=== PATIENT | male | born 1995 | race Caucasian/White ===

== ENCOUNTER 2016-12-23 18:21 | Emergency (ER) | payer BC ==
[~2016-12-23] VITALS: Ht 170.2 cm; Wt 70.5 kg
[2016-12-23 18:36] VITALS: TEMP 37; Ht 170.2 cm; Wt 70.5 kg
[2016-12-23] MEDS ORDERED: SODIUM CHLORIDE 0.9% 1000ML 1,000 ML IV STA (19:43)
--- NOTE | 2016-12-23 19:45 | EMERGENCY ROOM VISIT NOTE ---
History Report prepared by Jerman: Britney Aldana Under the Supervision of: Dr. Sherman Campuzano M.D. First contact with patient: 19:27 Chief Complaint: ABDOMINAL PAIN Stated Complaint: ABDOMINAL PAIN- [facility] REFERRED Nursing Triage Summary: Pt c/o upper abd pain since yesterday morning. denies n/v/d. reports constipation, last BM was yesterday after tea and Pepto Bismol. "my dad had appendicitis when he was my age". Pt referred from [facility] History of Present Illness The patient is a 21 year old male who presents to the Emergency Room with complaints of waxing and waning RLQ pain beginning yesterday morning. The patient states that he has been having RLQ abdominal pain that comes and goes every 20 minutes. He reports that his pain gets up to a 9/10 in severity every 20 minutes. 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 He complains of constipation and decreased appetite. The patient denies any nausea, vomiting, and fever. He notes that he has had no previous surgeries on his abdomen. He reports that his dad had appendicitis when he was around the same age. Source of History: patient Onset: yesterday morning Position: abdomen (RLQ) Symptom Intensity: 9/10 Timing: waxes/wanes Associated Symptoms: No fevers, No nausea, No vomiting Note: Pt complains of constipation and decreased appetite. Review of Systems See HPI for pertinent positives & negatives. A total of 10 systems reviewed and were otherwise negative. Past Medical & Surgical Medical Problems: (1) No Known Active Medical Problems Family History No pertinent family history stated. Social History Smoking Status: Never Smoker Marital Status: in relationship Housing Status: lives with significant other Occupation Status: student Current/Historical Medications No Active Prescriptions or Reported Meds Allergies Coded Allergies: No Known Allergies (Unverified , 12/23/16) Physical Exam Vital Signs Date Time Temp Pulse Resp B/P (MAP) Pulse Ox O2 Delivery O2 Flow Rate FiO2 12/23/16 23:00 56 18 128/61 98 12/23/16 22:07 58 18 105/58 95 Room Air 12/23/16 20:51 58 18 122/57 98 Room Air 12/23/16 19:35 60 18 117/51 96 Room Air 12/23/16 18:36 37.0 64 18 116/57 100 Room Air Physical Exam GENERAL: Patient is in moderate distress, mildly uncomfortable appearing HEENT: No acute trauma, normocephalic atraumatic, mucous membranes moist, no nasal congestion, no scleral icterus. NECK: No stridor, no adenopathy, no meningismus, trachea is midline. LUNGS: No dyspnea. Clear to auscultation and equal bilaterally. No wheeze, no rhonchi. HEART: Regular rate and rhythm. No murmurs, rubs, gallops appreciated. ABDOMEN: Soft, moderate RLQ tenderness to palpation, bowel sounds positive, no masses appreciated, no peritonitis. BACK: No midline tenderness, no CVA tenderness EXTREMITIES: Normal motion all extremities, no cyanosis, no edema. NEUROLOGIC: Alert and oriented, no acute motor or sensory deficits, no focal weakness, cranial nerves grossly intact. SKIN: No rash, no jaundice, no diaphoresis. Medical Decision & Procedures ER Provider Diagnostic Interpretation: Radiology results and stated below per my review and radiologist interpretation: APPENDIX ULTRASOUND FINDINGS: Transabdominal scanning of the right lower quadrant was performed. The appendix was not identified small amount of fluid was noted within the right lower quadrant. IMPRESSION: 1. Nonvisualization of the appendix. A CT is recommended if persistent clinical suspicion for acute appendicitis. 2. Trace free fluid within the right lower quadrant. Electronically signed by: Rcikie Caldera M.D. 12/23/2016 9:22 PM Dictated Date/Time: 12/23/2016 9:[address] OF THE ABDOMEN AND PELVIS WITH CONTRAST FINDINGS: Lung bases are clear. The liver, spleen, adrenal glands, kidneys and pancreas are normal. There is no biliary or pancreatic ductal dilatation. There is no hydronephrosis. No abdominal or pelvic lymphadenopathy is present. There is no evidence for a bowel obstruction. The appendix is at the upper limits of normal for caliber. There is no periappendiceal infiltration. There is oral contrast and gas within the appendix. Note is made of long segment moderate wall thickening of the distal ileum. There is no free air or abscess. A small amount of fluid is noted within the pelvis. Skeletal structures are unremarkable. IMPRESSION: 1. Long segment moderate wall thickening of the distal ileum consistent with ileitis. This could be due to an infectious etiology or an inflammatory etiology such as Crohn's disease. No free air, abscess or bowel obstruction. Small amount of fluid within the pelvis. 2. Normal appendix. Electronically signed by: Rickie Caldera M.D. 12/23/2016 10:25 PM Dictated Date/Time: 12/23/2016 10:18 PM Laboratory Results 12/23/16 19:55 Red Blood Count 4.87, Mean Corpuscular Volume 89.1, Mean Corpuscular Hemoglobin 31.0, Mean Corpuscular Hemoglobin Concent 34.8, Mean Platelet Volume 9.3, Neutrophils (%) (Auto) 57.5, Lymphocytes (%) (Auto) 29.6, Monocytes (%) (Auto) 9.3, Eosinophils (%) (Auto) 3.2, Basophils (%) (Auto) 0.2, Neutrophils # (Auto) 6.05, Lymphocytes # (Auto) 3.12, Monocytes # (Auto) 0.98, Eosinophils # (Auto) 0.34, Basophils # (Auto) 0.02 12/23/16 19:55 Test 12/23/16 19:55 12/23/16 21:25 White Blood Count 10.53 K/uL (4.8-10.8) Red Blood Count 4.87 M/uL (4.7-6.1) Hemoglobin 15.1 g/dL (14.0-18.0) Hematocrit 43.4 % (42-52) Mean Corpuscular Volume 89.1 fL (80-100) Mean Corpuscular Hemoglobin 31.0 pg (25-34) Mean Corpuscular Hemoglobin Concent 34.8 g/dl (32-36) Platelet Count 240 K/uL (130-400) Mean Platelet Volume 9.3 fL (7.4-10.4) Neutrophils (%) (Auto) 57.5 % Lymphocytes (%) (Auto) 29.6 % Monocytes (%) (Auto) 9.3 % Eosinophils (%) (Auto) 3.2 % Basophils (%) (Auto) 0.2 % Neutrophils # (Auto) 6.05 K/uL (1.4-6.5) Lymphocytes # (Auto) 3.12 K/uL (1.2-3.4) Monocytes # (Auto) 0.98 K/uL (0.11-0.59) Eosinophils # (Auto) 0.34 K/uL (0-0.5) Basophils # (Auto) 0.02 K/uL (0-0.2) RDW Standard Deviation 41.8 fL (36.4-46.3) RDW Coefficient of Variation 12.8 % (11.5-14.5) Immature Granulocyte % (Auto) 0.2 % Immature Granulocyte # (Auto) 0.02 K/uL (0.00-0.02) Anion Gap 5.0 mmol/L (3-11) Est Creatinine Clear Calc Drug Dose 121.7 ml/min Estimated GFR () 140.7 Estimated GFR (Non- 121.4 BUN/Creatinine Ratio 13.4 (10-20) Calcium Level 9.3 mg/dl (8.5-10.1) Total Bilirubin 0.4 mg/dl (0.2-1) Direct Bilirubin 0.1 mg/dl (0-0.2) Aspartate Amino Transf (AST/SGOT) 20 U/L (15-37) Alanine Aminotransferase (ALT/SGPT) 24 U/L (12-78) Alkaline Phosphatase 87 U/L (45-117) Total Protein 7.7 gm/dl (6.4-8.2) Albumin 4.1 gm/dl (3.4-5.0) Lipase 167 U/L (73-393) Urine Color YELLOW Urine Appearance CLEAR (CLEAR) Urine pH 6.0 (4.5-7.5) Urine Specific [place] 1.008 (1.000-1.030) Urine Protein NEG (NEG) Urine Glucose (UA) NEG (NEG) Urine Ketones NEG (NEG) Urine Occult Blood NEG (NEG) Urine Nitrite NEG (NEG) Urine Bilirubin NEG (NEG) Urine Urobilinogen NEG (NEG) Urine Leukocyte Esterase NEG (NEG) Urine WBC (Auto) 0 /hpf (0-5) Urine RBC (Auto) 0-4 /hpf (0-4) Urine Hyaline Casts (Auto) 0 /lpf (0-5) Urine Epithelial Cells (Auto) 0-5 /lpf (0-5) Urine Bacteria (Auto) NEG (NEG) Laboratory results as reviewed by me. Medications Administered Medications (Trade) Dose Ordered Sig/Keith Route Start Time Stop Time Status Last Admin Dose Admin Sodium Chloride 1,000 ml @ 999 mls/hr Q1H1M STAT IV 12/23/16 19:43 12/23/16 20:43 DC 12/23/16 19:57 999 MLS/HR ED Course 1926: The patient was evaluated in room C11. A complete history and physical exam was performed. 1942: Sodium Chloride 1000 ml @ 999 mls/hr IV. 2151: I reevaluated the patient and he is stable. 2248: I reevaluated the patient. He is comfortable with going home and will follow up with GI as an outpatient. 2249: Reevaluated the patient. Discussed results and discharge instructions: He verbalized understanding and agreement. The patient is ready for discharge. Medical Decision Differential: Appendicitis, , MSK, Diverticulitis, UTI, Renal Colic, Bowel Obstruction, Aortic Pathology, amongst other pathologies entertained. Blood pressure screening: Patient was found to have normal blood pressure on screening and does not require follow-up. Medication Reconciliation: I attest that I have personally reviewed the patient 's current medication list. 21 yr old male arrives with vague kavya-umbilical pain and some constipation. TTP right lower quadrant quite clear. Labs unremarkable but with free fluid on US felt that going ahead with ct reasonable. Fortunately no evidence of appendicitis. He does not have peritonitis by examination. CT shows terminal ileitis. no history of crohn's or similar thus will assume viral etiology until otherwise proven. Stressed PCP/GI follow up. Reviewed symptoms requiring RTED. Impression Primary Impression: Ileitis, terminal Scribe Attestation The scribe's documentation has been prepared under my direction and personally reviewed by me in its entirety. I confirm that the note above accurately reflects all work, treatment, procedures, and medical decision making performed by me. Departure Information Dispostion Home / Self-Care Prescriptions No Active Prescriptions or Reported Meds Referrals No Doctor, Assigned (PCP) Forms HOME CARE DOCUMENTATION FORM, IMPORTANT VISIT INFORMATION Patient Instructions My [facility] Additional Instructions Your CT Scan shows inflammation of the end of your small bowel. This is likely viral, though may be related to another condition and should have further evaluation by your primary care provider and a irrigation equipment mechanic. Stick to a light diet with increased liquids over the next few days. Use Tylenol as needed for discomfort. Return if vomiting, increased pain, fevers, bloody stool or other concerns.
[2016-12-23] MEDS ORDERED: OPTIRAY 320 IV PRN (20:00)
[2016-12-23 20:08] LABS: BASO % 0.2 %; BASO ABS # 0.02 K/uL (0-0.2); COMPLETE YES; EOS % 3.2 %; HEMATOCRIT 43.4 % (42-52); IG% 0.2 %; LYMPH % 29.6 %; LYMPH ABS # 3.12 K/uL (1.2-3.4); MEAN CELL VOLUME 89.1 fL (80-100); MEAN CORPUSCULAR HGB CONC 34.8 g/dl (32-36); MEAN PLATELET VOLUME 9.3 fL (7.4-10.4); MONO % 9.3 %; NEUT % 57.5 %; PLATELET COUNT 240 K/uL (130-400); RED BLOOD COUNT 4.87 M/uL (4.7-6.1); WHITE BLOOD COUNT 10.53 K/uL (4.8-10.8)
[2016-12-23 20:27] LABS: BUN/CREATININE RATIO 13.4 (10-20); CALCIUM 9.3 mg/dl (8.5-10.1); CREATININE 0.89 mg/dl (0.60-1.40); POTASSIUM 4.1 mmol/L (3.5-5.1)
--- NOTE | 2016-12-23 21:24 | DIAGNOSTIC IMAGING REPORT ---
APPENDIX ULTRASOUND HISTORY: Lower quadrant abdominal pain. COMPARISON: None. FINDINGS: Transabdominal scanning of the right lower quadrant was performed. The appendix was not identified small amount of fluid was noted within the right lower quadrant. IMPRESSION: 1. Nonvisualization of the appendix. A CT is recommended if persistent clinical suspicion for acute appendicitis. 2. Trace free fluid within the right lower quadrant. Electronically signed by: Rickie Caldera M.D. 12/23/2016 9:22 PM Dictated Date/Time: 12/23/2016 9:22 PM
[2016-12-23 21:50] LABS: MANUAL MICROSCOPIC REQUIRED? NO; REVIEW REQ? NO; URINE APPEARANCE CLEAR (CLEAR); URINE BILIRUBIN NEG (NEG); URINE COLOR YELLOW; URINE EPITHELIAL CELL AUTO 0-5 /lpf (0-5); URINE NITRITE NEG (NEG); URINE SPECIFIC GRAVITY 1.008 (1.000-1.030); UROBILINOGEN NEG (NEG); ZZUR CULT IF INDIC CLEAN CATCH NO
--- NOTE | 2016-12-23 22:26 | DIAGNOSTIC IMAGING REPORT ---
CT OF THE ABDOMEN AND PELVIS WITH CONTRAST CLINICAL HISTORY: Right lower quadrant abdominal pain. COMPARISON STUDY: Appendix ultrasound performed December 23, 2016. TECHNIQUE: Following IV administration of 94 mL of Optiray-320, axial images of the abdomen and pelvis were obtained from the lung bases to the proximal femurs. Images were reviewed in the axial, sagittal, and coronal planes. IV contrast was administered without complication. Oral contrast was administered. CT DOSE: 306.68 mGy.cm FINDINGS: Lung bases are clear. The liver, spleen, adrenal glands, kidneys and pancreas are normal. There is no biliary or pancreatic ductal dilatation. There is no hydronephrosis. No abdominal or pelvic lymphadenopathy is present. There is no evidence for a bowel obstruction. The appendix is at the upper limits of normal for caliber. There is no periappendiceal infiltration. There is oral contrast and gas within the appendix. Note is made of long segment moderate wall thickening of the distal ileum. There is no free air or abscess. A small amount of fluid is noted within the pelvis. Skeletal structures are unremarkable. IMPRESSION: 1. Long segment moderate wall thickening of the distal ileum consistent with ileitis. This could be due to an infectious etiology or an inflammatory etiology such as Crohn's disease. No free air, abscess or bowel obstruction. Small amount of fluid within the pelvis. 2. Normal appendix. Electronically signed by: Rickie Caldera M.D. 12/23/2016 10:25 PM Dictated Date/Time: 12/23/2016 10:18 PM
[2016-12-23 23:00] VITALS: BP 128/61; PULSE 56; O2SAT 98
== END 2016-12-23 23:00 | disposition home or self-care (01) ==
LOC: C.EDB 18:23 → C.EDC 23:00
DX: K50.00 Crohn's disease of small intestine without complications (principal); K59.00 Constipation, unspecified

== ENCOUNTER 2016-12-28 20:58 | Emergency (ER) | payer BC ==
[~2016-12-28] VITALS: Ht 170.2 cm; Wt 69.3 kg
[2016-12-28 21:08] VITALS: Ht 170.2 cm; Wt 69.3 kg
[2016-12-28] MEDS ORDERED: SODIUM CHLORIDE 0.9% 1000ML 1,000 ML IV STA (22:02)
[2016-12-28 22:27] LABS: BASO % 0.2 %; BASO ABS # 0.02 K/uL (0-0.2); COMPLETE YES; EOS % 3.6 %; HEMATOCRIT 47.6 % (42-52); IG% 0.4 %; LYMPH ABS # 1.98 K/uL (1.2-3.4); MEAN CELL VOLUME 87.7 fL (80-100); MEAN CORPUSCULAR HEMOGLOBIN 30.2 pg (25-34); MEAN CORPUSCULAR HGB CONC 34.5 g/dl (32-36); MEAN PLATELET VOLUME 8.9 fL (7.4-10.4); NEUT % 64.8 %; PLATELET COUNT 273 K/uL (130-400); RED BLOOD COUNT 5.43 M/uL (4.7-6.1); WHITE BLOOD COUNT 10.43 K/uL (4.8-10.8)
[2016-12-28 22:34] LABS: URINE APPEARANCE CLEAR (CLEAR); URINE BILIRUBIN NEG (NEG); URINE COLOR YELLOW; URINE NITRITE NEG (NEG); URINE PH 6.5 (4.5-7.5); URINE SPECIFIC GRAVITY 1.015 (1.000-1.030); UROBILINOGEN NEG (NEG); ZZUR CULT IF INDIC CLEAN CATCH NO
[2016-12-28 22:37] LABS: MANUAL MICROSCOPIC REQUIRED? NO; REVIEW REQ? NO
[2016-12-28 22:46] LABS: BUN/CREATININE RATIO 7.3 (10-20); CALCIUM 9.4 mg/dl (8.5-10.1); POTASSIUM 3.6 mmol/L (3.5-5.1)
[2016-12-28 23:25] VITALS: TEMP 37.4
[2016-12-28] MEDS ORDERED: ACETAMINOPHEN 500 MG TAB PO STA (23:45)
[2016-12-28 23:51] LABS: C-REACTIVE PROTEIN 9.72 mg/dl (0-0.29)
[2016-12-29] MEDS ORDERED: ONDANSETRON INJ 2 MG/ML 2 ML VIAL IV STA (00:24)
--- NOTE | 2016-12-29 00:41 | EMERGENCY ROOM VISIT NOTE ---
History First contact with patient: 21:46 Chief Complaint: ABDOMINAL PAIN Stated Complaint: STOMACH FLU Nursing Triage Summary: Pt reports he was here on December 23 and dx with viral gastroenteritis. Pt now with blood in stool and fever. History of Present Illness The patient is a 21 year old male who presents to the Emergency Room with complaints of persistent abdominal pain and rectal bleeding. The patient states that he was seen here 5 days ago due to diarrhea and abdominal pain. A CT scan showed evidence of gastroenteritis. He states that he has had persistent symptoms. His abdominal pain is improving, but he has continued diarrhea and had a small amount of blood in his stool this morning. He has had fevers up to 102.5F. He has been nauseous, but denies vomiting. He was at urgent care today and they sent him here. He rates his discomfort a 2/10. He denies any history of abdominal issues or inflammatory bowel disease. He denies any recent uncooked foods, unknown water sources or antibiotic use. Review of Systems A complete 10 point review of systems was reviewed with the patient with pertinent positives and negatives as per history of present illness. All else were negative. Past Medical/Surgical History Medical Problems: (1) No Known Active Medical Problems Social History Smoking Status: Never Smoker Marital Status: in relationship Housing Status: lives with significant other Occupation Status: student Current/Historical Medications No Active Prescriptions or Reported Meds Allergies Coded Allergies: No Known Allergies (Unverified , 12/28/16) Physical Exam Vital Signs Date Time Temp Pulse Resp B/P (MAP) Pulse Ox O2 Delivery O2 Flow Rate FiO2 12/29/16 00:45 95 18 114/67 97 Room Air 12/29/16 00:31 97 16 118/63 97 12/28/16 23:25 37.4 82 16 121/61 100 Room Air 12/28/16 21:08 36.6 82 16 109/62 98 Room Air Physical Exam VITALS: Vitals are noted on the nurse's note and reviewed by myself. Vital signs stable. GENERAL: This is a 21-year-old male, in no acute distress, nondiaphoretic, well- developed well-nourished. SKIN: Capillary reflex less than 2 seconds. HEENT: Normocephalic. PERRLA. EOMI. Mucous membranes moist. Neck is supple without nuchal rigidity. HEART: Regular rate and rhythm without murmurs gallops or rubs. LUNGS: Clear to auscultation bilaterally without wheezes, rales or rhonchi. ABDOMEN: Positive bowel sounds x 4. Soft, nontender to palpation. NEURO: Patient was alert and oriented to person place and time. Medical Decision & Procedures Laboratory Results 12/28/16 22:15 Red Blood Count 5.43, Mean Corpuscular Volume 87.7, Mean Corpuscular Hemoglobin 30.2, Mean Corpuscular Hemoglobin Concent 34.5, Mean Platelet Volume 8.9, Neutrophils (%) (Auto) 64.8, Lymphocytes (%) (Auto) 19.0, Monocytes (%) (Auto) 12.0, Eosinophils (%) (Auto) 3.6, Basophils (%) (Auto) 0.2, Neutrophils # (Auto ) 6.76, Lymphocytes # (Auto) 1.98, Monocytes # (Auto) 1.25, Eosinophils # (Auto ) 0.38, Basophils # (Auto) 0.02 12/28/16 22:15 Test 12/28/16 22:15 White Blood Count 10.43 K/uL (4.8-10.8) Red Blood Count 5.43 M/uL (4.7-6.1) Hemoglobin 16.4 g/dL (14.0-18.0) Hematocrit 47.6 % (42-52) Mean Corpuscular Volume 87.7 fL (80-100) Mean Corpuscular Hemoglobin 30.2 pg (25-34) Mean Corpuscular Hemoglobin Concent 34.5 g/dl (32-36) Platelet Count 273 K/uL (130-400) Mean Platelet Volume 8.9 fL (7.4-10.4) Neutrophils (%) (Auto) 64.8 % Lymphocytes (%) (Auto) 19.0 % Monocytes (%) (Auto) 12.0 % Eosinophils (%) (Auto) 3.6 % Basophils (%) (Auto) 0.2 % Neutrophils # (Auto) 6.76 K/uL (1.4-6.5) Lymphocytes # (Auto) 1.98 K/uL (1.2-3.4) Monocytes # (Auto) 1.25 K/uL (0.11-0.59) Eosinophils # (Auto) 0.38 K/uL (0-0.5) Basophils # (Auto) 0.02 K/uL (0-0.2) RDW Standard Deviation 39.9 fL (36.4-46.3) RDW Coefficient of Variation 12.5 % (11.5-14.5) Immature Granulocyte % (Auto) 0.4 % Immature Granulocyte # (Auto) 0.04 K/uL (0.00-0.02) Erythrocyte Sedimentation Rate 11 mm/hr (0-14) Urine Color YELLOW Urine Appearance CLEAR (CLEAR) Urine pH 6.5 (4.5-7.5) Urine Specific [place] 1.015 (1.000-1.030) Urine Protein NEG (NEG) Urine Glucose (UA) NEG (NEG) Urine Ketones NEG (NEG) Urine Occult Blood NEG (NEG) Urine Nitrite NEG (NEG) Urine Bilirubin NEG (NEG) Urine Urobilinogen NEG (NEG) Urine Leukocyte Esterase NEG (NEG) Anion Gap 10.0 mmol/L (3-11) Est Creatinine Clear Calc Drug Dose 108.4 ml/min Estimated GFR () 123.3 Estimated GFR (Non- 106.4 BUN/Creatinine Ratio 7.3 (10-20) Calcium Level 9.4 mg/dl (8.5-10.1) Total Bilirubin 0.5 mg/dl (0.2-1) Direct Bilirubin 0.1 mg/dl (0-0.2) Aspartate Amino Transf (AST/SGOT) 18 U/L (15-37) Alanine Aminotransferase (ALT/SGPT) 27 U/L (12-78) Alkaline Phosphatase 94 U/L (45-117) C-Reactive Protein 9.72 mg/dl (0-0.29) Total Protein 8.3 gm/dl (6.4-8.2) Albumin 4.2 gm/dl (3.4-5.0) Date/Time Source Procedure Growth Status 12/28/16 22:15 Stool C.difficile Toxin B Gene (PCR) - Final No C. difficile toxin B gene detected Complete Medications Administered Medications (Trade) Dose Ordered Sig/Keith Route Start Time Stop Time Status Last Admin Dose Admin Sodium Chloride 1,000 ml @ 999 mls/hr Q1H1M STAT IV 12/28/16 22:02 12/28/16 23:02 DC 12/28/16 22:02 999 MLS/HR Acetaminophen (Tylenol Tab) 1,000 mg NOW STAT PO 12/28/16 23:45 12/28/16 23:47 DC 12/29/16 00:12 1,000 MG Ondansetron HCl (Zofran Inj) 4 mg NOW STAT IV 12/29/16 00:24 12/29/16 00:25 DC 12/29/16 00:27 4 MG ED Course The patient was evaluated as above. Labs were drawn and IV access was obtained. Patient was medicated with 1 L normal saline solution, 1 g Tylenol and 4 mg Zofran. Patient was reevaluated and findings were discussed. I spoke with case management, he will the patient a follow-up appointment with GI. Discharge instructions were reviewed with the patient. The patient verbalized understanding of my assessment and treatment plan and was discharged home in good condition. Medical Decision Differential diagnosis includes gastroenteritis, infectious colitis, inflammatory bowel disease, among others. The patient is a 21-year-old male who presents today complaining of persistent diarrhea and a small amount of blood within his stools. Labs revealed no leukocytosis, anemia or concerning effect related abnormalities. CRP is elevated at 9.7 patient was seen here a few days ago for similar symptoms. He has now had symptoms for 1 week. Stool sample was obtained and cultures are pending. Given the patient's elevated CRP, I do feel it is very likely he has an inflammatory cause of his symptoms. Fortunately, the patient is stable and in no significant distress on evaluation. I feel he can be followed as an outpatient. Case management will make him an appointment with local gastroenterology first thing in the morning. All findings were discussed with the patient. He will return here for worsening symptoms. Based on the patient's presentation and work up, I feel the patient is stable for outpatient treatment. The patient was educated to return to the emergency department for any worsening of their current condition or new/concerning symptoms. He will follow up with his primary care provider and GI. Medication reconciliation: I attest that I have personally reviewed the patient 's current medication list. Blood pressure screening: Patient was found to have normal blood pressure on screening and does not require follow-up. Impression Primary Impression: Diarrhea Departure Information Dispostion Home / Self-Care Condition GOOD Prescriptions No Active Prescriptions or Reported Meds Referrals No Doctor, Assigned (PCP) Patient Instructions My [facility] Additional Instructions Case management will contact you tomorrow regarding an orthopedic appointment. Clear liquid diet for the next 2-3 days or until you improve. Follow-up with her primary care provider. For pain control, you can use the following [id number] medicines (if >12 yo): - Regular strength (325mg/tab) Tylenol (acetaminophen) 2 tabs every 4-6 hours as needed. Do not exceed 12 tablets in a 24 hour period. Avoid taking more than 4 grams (4000 mg) of Tylenol per day. This includes any other sources of acetaminophen you may take on a regular basis. - Regular strength (200 mg/tab) Advil (ibuprofen) 1-2 tabs every 4-6 hours as needed. Do not exceed a dose of 3200 mg per day. Return here for worsening pain, vomiting, high fevers not controlled by Tylenol/ ibuprofen or any other new/concerning symptoms.
[2016-12-29 00:45] VITALS: BP 114/67; PULSE 95; O2SAT 97
[2016-12-30 18:40] LABS: O&P GIARDIA AG NOT DETECTED (NOT DETECTED)
== END 2016-12-29 00:50 | disposition home or self-care (01) ==
LOC: C.EDB 21:00
DX: R19.7 Diarrhea, unspecified (principal)